=== PATIENT | male | born 1950 | race Hispanic/Latino ===

== ENCOUNTER 2018-08-12 03:22 | Emergency (ER) | payer MEDICARE ==
[2018-08-12 04:00] LABS: #Basophils 0.1 thou/uL (0.0-0.2); #Eosinphils 0.1 thou/uL (0.0-0.7); #Lymphocytes 2.1 thou/uL (1.20-3.40); #Monocytes 0.5 thou/uL (0.11-0.59); %Basophils 1.2 % (0.0-1.0); %Eosinophils 1.8 % (0.0-10.0); %Lymphocytes 27.1 % (21.0-51.0); %Monocytes 6.4 % (0.0-10.0); %Neutrophils 63.5 % (42.0-75.0); Hemoglobin 16.5 g/dL (14.0-18.0); Mean Corpuscular HGB CONC 33.7 g/dL (32.0-36.0); Mean Corpuscular Hemoglobin 31.1 pg (27.0-31.0); Mean Corpuscular Volume 92.3 fL (78.0-98.0); Mean Platelet Volume 7.8 fL (7.4-10.4); Platelet Count 222 thou/uL (130-400); RBC Distribution Width 11.3 % (11.5-14.5); Red Blood Cell (RBC) Count 5.29 mill/uL (4.70-6.10); White Blood Cell (WBC) Count 7.8 thou/uL (4.8-10.8)
[2018-08-12 04:10] LABS: PTT 25.5 SEC (22.9-36.1); Prothrombin Time 13.1 SEC (12.0-14.7)
[2018-08-12] MEDS ORDERED: Ondansetron PF 4 MG/2 ML Vial ONE (04:13)
[2018-08-12 04:21] LABS: ALT (SGPT) 19 U/L (8-55); AST (SGOT) 20 U/L (5-34); Albumin 4.2 g/dL (3.4-4.8); Alkaline Phosphatase 66 U/L (40-150); Anion Gap 15 mmol/L (10-20); BUN (Urea Nitrogen) 14 mg/dL (8.4-25.7); Bilirubin, Total 1.1 mg/dL (0.2-1.2); Calc. Creatinine Clearance 0 mL/min (70-130); Calcium 9.3 mg/dL (7.8-10.44); Carbon Dioxide 23 mmol/L (23-31); Chloride 106 mmol/L (98-107); Estimated GFR-MDRD Greater than 90; Globulin 2.4 g/dL (2.4-3.5); Glucose 123 mg/dL (80-115); Potassium 3.9 mmol/L (3.5-5.1); Protein, Total 6.6 g/dL (5.8-8.1); Sodium 140 mmol/L (136-145)
[2018-08-12] MEDS ORDERED: Meclizine HCl 25 MG TAB ONE (05:39)
[2018-08-12] MEDS ORDERED: Aspirin 325 MG TAB ONE (05:39)
--- NOTE | 2018-08-12 08:17 | RAD ---
SINGLE VIEW CHEST: Date: 08/12/18 COMPARISON: None. HISTORY: Dizziness. FINDINGS: Single view of the chest shows a normal sized cardiomediastinal silhouette. There is no evidence of c onsolidation, mass, or pleural effusion. The bones are unremarkable. IMPRESSION: No evidence of acute cardiopulmonary disease. POS: [facility]
--- NOTE | 2018-08-12 08:54 | CT ---
PRELIMINARY REPORT/[facility]/EMERGENTY AFTER-HOURS PROCEDURE CT Head Without Contrast EXAM DATE/TIME: 08/12/2018 4:03 AM CLINICAL HISTORY: 67 years old, male; Signs and symptoms; Dizziness; Patient HX: Dizziness that started earlier this a. M. ; Additional info: See above TECHNIQUE: Axial computed tomography images of the head/brain without contrast. All CT scans at this facility use at least one of these dose optimization techniques: automated expos ure control; mA and/or kV adjustment per patient size (includes targeted exams where dose is matched to clinical indication); or iterative reconstruction. COMPARISON: No relevant prior studies available. FINDINGS: Brain: Normal. No hemorrhage. No significant white matter disease. No edema. Ventricles: Normal. No ventriculomegaly. Bones/joints: Unremarkable. No acute fracture. Sinuses: Visualized sinuses are unremarkable. No acute sinusitis. Mastoid air cells: Visualized mastoid air cells are unremarkable. No mastoid effusion. Soft tissues: Unremarkable. IMPRESSION: No acute intracranial hemorrhage. Thank you for allowing us to participate in the care of your patient. Dictated and Authenticated by: Monty Chacon MD 08/12/2018 4:40 AM Central Time ([place] & [place]) FINAL REPORT EMERGENT AFTER HOURS CT BRAIN WITHOUT CONTRAST: FINDINGS/IMPRESSION: I agree with the findings and impression given in the preliminary report per [facility] physician. No yara dence of acute intracranial abnormality. POS: [facility]
== END 2018-08-12 05:47 | disposition short-term general hospital (02) ==
LOC: MADERS 03:22
DX: R42 Dizziness and giddiness (principal); I10 Essential (primary) hypertension; Z79.899 Other long term (current) drug therapy
CPT/HCPCS: 70450; 71045; 80053; 84484; 85025; 85610; 85730; 93005; 96374; J2405

== ENCOUNTER 2018-10-07 11:34 | Outpatient (CLI) | payer MEDICARE ==
--- NOTE | 2018-10-07 12:20 | ULT ---
Abdominal ultrasound. HISTORY: Abdominal pain. Multiple longitudinal and transverse images of the abdomen are obtained using Multi-Hertz curvilinear transducer. Real-time and color flow images are obtained. Images demonstrate the liver to contain a hepatic cyst seen, measuring 2.5 x 1.7 x 1.8 cm. No other h epatic masses or lesions seen. No evidence of intrahepatic biliary dilatation seen. The common bile duct is of normal size, measurin g 1.1 mm. The gallbladder is unremarkable. No evidence of gallstones seen. No evidence of pericholecystic fluid seen. The patient has a negative Hung sign. The spleen is unremarkable. Visualized portions of the pancreas are unremarkable. The rest the pancreas is not visualized. Both kidneys visualized. Right kidney measures 8.5 and left kidney 9.8 cm from pole to pole. No evide nce of hydronephrosis or renal masses seen. No evidence of ascites seen. IMPRESSION: Hepatic cyst otherwise unremarkable abdominal ultrasound. Transcribed Date/Time: 10/07/2018 12:26 PM
== END 2018-10-07 11:35 | disposition home or self-care (01) ==
LOC: MADULT 11:34
PROVIDERS: ATTEND Internal Medicine Gastroenterology
DX: R10.9 Unspecified abdominal pain (principal); K76.89 Other specified diseases of liver
CPT/HCPCS: 76700